=== PATIENT | female | born 1990 ===

== ENCOUNTER 2024-03-05 09:28 | Emergency (ER) | payer OTHER ==
[~2024-03-05] VITALS: Ht 162.6 cm; Wt 91.0 kg
[2024-03-05 09:31] VITALS: BP 109/76; PULSE 68; RESP 16; TEMP 98.1
[2024-03-05] MEDS: PROPARACAINE HCL 0.5% 15 ML OPHTHALMIC SOLUTION OU ONE (10:36)
[2024-03-05] MEDS: FLUORESCEIN SODIUM 1 MG STRIP OD ONE (10:37)
[2024-03-05] MEDS ORDERED: IBUP-1492 PO (10:43)
== END 2024-03-05 11:00 | disposition home or self-care (01) ==
LOC: EMS 09:28
DX: T15.01XA Foreign body in cornea, right eye, initial encounter (principal); W44.8XXA Other foreign body entering into or through a natural orifice, initial encounter; Y93.89 Activity, other specified; Y92.89 Other specified places as the place of occurrence of the external cause; Y99.0 Civilian activity done for income or pay
CPT/HCPCS: 99283